=== PATIENT | female | born 2005 | race Asian ===

== ENCOUNTER 2023-03-03 12:04 | Emergency (ER) | payer MEDICAID ==
[~2023-03-03] VITALS: Ht 165.1 cm; Wt 95.2 kg
[~2023-03-03 12:04] MED LIST: VITATAB
[2023-03-03 13:17] VITALS: BP 123/58; PULSE 66; RESP 17; TEMP 98.1; O2SAT 96
[2023-03-03] MEDS ORDERED: PROM1SOL4 PO (14:09)
[2023-03-03] MEDS ORDERED: AZIT500T66 PO (14:09)
== END 2023-03-03 14:21 | disposition home or self-care (01) ==
LOC: ER 12:04
DX: J03.90 Acute tonsillitis, unspecified (principal); J20.9 Acute bronchitis, unspecified
CPT/HCPCS: 71045